=== PATIENT | female | born 1990 | race Caucasian/White ===

== ENCOUNTER 2018-04-30 11:28 | Emergency (ER) | payer MEDICAID ==
[~2018-04-30] VITALS: Ht 170.2 cm; Wt 53.6 kg
[2018-04-30 11:35] VITALS: BP 118/71; PULSE 98; TEMP 98.7
[2018-04-30] MEDS ORDERED: XANAX .25M0.25 MG/TA (11:49)
== END 2018-04-30 12:10 | disposition home or self-care (01) ==
LOC: COL.ER 11:28
DX: S61.214A Laceration without foreign body of right ring finger without damage to nail, initial encounter (principal); F41.9 Anxiety disorder, unspecified; W25.XXXA Contact with sharp glass, initial encounter

== ENCOUNTER 2018-05-20 06:17 | Emergency (ER) | payer MEDICAID ==
[~2018-05-20] VITALS: Ht 170.2 cm; Wt 51.4 kg
[~2018-05-20 06:17] MED LIST: XANAX .25M0.25 MG/TA
[2018-05-20 06:22] VITALS: TEMP 99.1
[2018-05-20 07:40] LABS: COLLECTION METHOD CLEAN CATCH
[2018-05-20 07:50] LABS: MUCOUS Present /lpf; PH 7 (5-8); URINE APPEARANCE Hazy; URINE BACTERIA Rare /hpf; URINE BILIRUBIN Negative (NEGATIVE); URINE BLOOD Negative (NEGATIVE); URINE COLOR Yellow; URINE GLUCOSE Negative (NEGATIVE); URINE KETONE 2+ (NEGATIVE); URINE LEUKOCYTE ESTERASE Trace (NEGATIVE); URINE NITRATE Negative (NEGATIVE); URINE PROTEIN(semi-quant) Negative (NEGATIVE); URINE RBC 0-2 /hpf; URINE UROBILINOGEN Negative (NEGATIVE)
[2018-05-20 08:07] LABS: BASO % 0.4 % (0.0-2.0); EOS % 0.1 % (0-4.0); GRAN # 5.6 (1.4-6.5); GRAN % 80.1 % (42.2-75.2); HEMATOCRIT 38.9 % (37.0-47.0); HEMOGLOBIN 14.2 g/dl (12.5-16.0); LYMPH # 0.9 (1.2-3.4); LYMPH % 12.7 % (20.0-51.0); MEAN CELL VOLUME 89 fl (80.0-100.0); MEAN CORPUSCULAR HEMOGLOBIN 33 pg (27.0-31.0); MEAN CORPUSCULAR HGB CONC 37 g/dl (33.0-37.0); MEAN PLATELET VOLUME 9.6 fl (7.4-10.4); MONO # 0.4 (0.1-0.6); MONO % 6.3 % (1.7-9.3); PLATELET COUNT 147 K/mm3 (130-400); RED BLOOD COUNT 4.37 M/mm3 (4.10-5.30); REDCELL DISTRIBUTION WIDTH-CV 12.1 % (11.5-14.5)
[2018-05-20] MEDS ORDERED: FEMYNOR 28 TAB1 EACH PO (08:13)
[2018-05-20] MEDS ORDERED: ZOFRAN ODT4 MG PO (08:14)
[2018-05-20 08:22] LABS: ALANINE AMINOTRANSFERASE 15 U/L (9-52); ALBUMIN 4.7 gm/dL (3.5-5.0); ALKALINE PHOSPHATASE 43 U/L (50-136); ANION GAP 13 mmol/L (7-16); AST,SGOT 15 U/L (15-37); BLOOD UREA NITROGEN 5 mg/dL (7-17); CARBON DIOXIDE 23 mmol/L (22-30); CHLORIDE 100 mmol/L (98-107); GLUCOSE 102 mg/dL (74-106); LIPASE 119 U/L (23-300); POTASSIUM 3.4 mmol/L (3.4-5.0); SODIUM 136 mmol/L (137-145); TOTAL PROTEIN 7.4 gm/dL (6.4-8.2)
[2018-05-20] MEDS ORDERED: PHENERGAN 25 TA25 MG PO (08:26)
[2018-05-20 08:28] LABS: C-REACTIVE PROTEIN < 0.5 mg/dL (0.0-0.9)
[2018-05-20 09:44] VITALS: BP 122/80; PULSE 88
== END 2018-05-20 09:43 | disposition home or self-care (01) ==
LOC: COL.ER 06:17
PROVIDERS: Family Medicine
DX: O21.9 Vomiting of pregnancy, unspecified (principal); O99.340 Other mental disorders complicating pregnancy, unspecified trimester; F41.9 Anxiety disorder, unspecified; Z87.891 Personal history of nicotine dependence; Z3A.00 Weeks of gestation of pregnancy not specified
CPT/HCPCS: J2550; J7030

== ENCOUNTER 2019-01-21 21:49 | Emergency (ER) | payer MEDICAID ==
[~2019-01-21] VITALS: Ht 170.2 cm; Wt 54.1 kg
[~2019-01-21 21:49] MED LIST changes: +FEMYNOR 28 TAB1 EACH PO; +PHENERGAN 25 TA25 MG PO; +ZOFRAN ODT4 MG PO
[2019-01-21 21:52] VITALS: BP 105/67; TEMP 98.3
[2019-01-21 22:47] VITALS: PULSE 66
== END 2019-01-21 22:46 | disposition home or self-care (01) ==
LOC: COL.ER 21:49
DX: S05.01XA Injury of conjunctiva and corneal abrasion without foreign body, right eye, initial encounter (principal); F41.9 Anxiety disorder, unspecified; Z88.5 Allergy status to narcotic agent; Z87.891 Personal history of nicotine dependence; W22.8XXA Striking against or struck by other objects, initial encounter

== ENCOUNTER → 2019-09-23 | Outpatient (CLI) | payer MEDICAID | LOC: MC.RAD 14:00 | DX: N60.02 Solitary cyst of left breast (principal) ==

== ENCOUNTER 2020-07-22 05:12 | Emergency (ER) | payer MEDICAID ==
[~2020-07-22] VITALS: Ht 170.2 cm; Wt 63.6 kg
[2020-07-22 05:17] VITALS: TEMP 97.7
[2020-07-22] MEDS ORDERED: REMERON 15M15 MG/TA1 PO (05:24)
[2020-07-22 05:55] LABS: BASO % 0.4 % (0.0-2.0); EOS # 0.1 (0.0-0.7); EOS % 1.3 % (0-4.0); GRAN # 4.2 (1.4-6.5); GRAN % 76.8 % (42.2-75.2); HEMATOCRIT 45.5 % (37.0-47.0); HEMOGLOBIN 16.2 g/dl (12.5-16.0); LYMPH # 0.7 (1.2-3.4); LYMPH % 12.8 % (20.0-51.0); MEAN CELL VOLUME 89 fl (80.0-100.0); MEAN CORPUSCULAR HEMOGLOBIN 32 pg (27.0-31.0); MEAN CORPUSCULAR HGB CONC 36 g/dl (33.0-37.0); MEAN PLATELET VOLUME 9.9 fl (7.4-10.4); MONO # 0.5 (0.1-0.6); MONO % 8.5 % (1.7-9.3); PLATELET COUNT 185 K/mm3 (130-400); RED BLOOD COUNT 5.11 M/mm3 (4.10-5.30); REDCELL DISTRIBUTION WIDTH-CV 12.2 % (11.5-14.5)
[2020-07-22 06:05] LABS: ALANINE AMINOTRANSFERASE 15 U/L (4-34); ALBUMIN 4.7 gm/dL (3.5-5.0); ALKALINE PHOSPHATASE 59 U/L (50-136); ANION GAP 10 mmol/L (7-16); AST,SGOT 24 U/L (15-37); BILIRUBIN,TOTAL 1.9 mg/dL (0.0-1.0); BLOOD UREA NITROGEN 12 mg/dL (7-17); CALCIUM 9.5 mg/dL (8.4-10.2); CARBON DIOXIDE 24 mmol/L (22-30); CHLORIDE 101 mmol/L (98-107); CREATINE KINASE 81 U/L (30-135); CREATININE, serum 0.58 (0.52-1.25); GLUCOSE 107 mg/dL (74-106); LIPASE 111 U/L (23-300); POTASSIUM 3.8 mmol/L (3.4-5.0); SODIUM 135 mmol/L (137-145); TOTAL PROTEIN 7.9 gm/dL (6.4-8.2)
[2020-07-22 06:18] LABS: TROPONIN-I < 0.012 ng/mL (0.000-0.035)
[2020-07-22] MEDS ORDERED: PEPCID 20MG TAB20 MG PO (06:46)
[2020-07-22] MEDS ORDERED: ZOFRAN ODT4 MG PO (06:46)
[2020-07-22] MEDS ORDERED: ZITHROMAX Z PA250 MG PO (06:46)
[2020-07-22 06:57] LABS: COLLECTION METHOD CLEAN CATCH
[2020-07-22 07:08] LABS: MUCOUS Present /lpf; PH 7 (5-8); URINE APPEARANCE Hazy; URINE BACTERIA None Seen /hpf; URINE BILIRUBIN Negative (NEGATIVE); URINE BLOOD Negative (NEGATIVE); URINE COLOR Yellow; URINE GLUCOSE Negative (NEGATIVE); URINE KETONE 1+ (NEGATIVE); URINE LEUKOCYTE ESTERASE Trace (NEGATIVE); URINE NITRATE Negative (NEGATIVE); URINE PROTEIN(semi-quant) 1+ (NEGATIVE); URINE UROBILINOGEN >=4.0 mg/dL (NEGATIVE)
[2020-07-22 08:08] VITALS: BP 101/71; PULSE 82
[2020-07-22] MEDS ORDERED: DIFLUCAN150 MG PO (08:12)
== END 2020-07-22 08:09 | disposition home or self-care (01) ==
LOC: COL.ER 05:12
PROVIDERS: Emergency Medicine
DX: J18.9 Pneumonia, unspecified organism (principal); Z20.822 Contact with and (suspected) exposure to COVID-19; Z87.891 Personal history of nicotine dependence; Z32.02 Encounter for pregnancy test, result negative
CPT/HCPCS: J2060; J2405; J2765; J7030

== ENCOUNTER 2020-08-11 14:27 | Emergency (ER) | payer MEDICAID ==
[~2020-08-11] VITALS: Ht 170.2 cm; Wt 63.6 kg
[~2020-08-11 14:27] MED LIST changes: +DIFLUCAN150 MG PO; +PEPCID 20MG TAB20 MG PO; +REMERON 15M15 MG/TA1 PO; +ZITHROMAX Z PA250 MG PO
[2020-08-11 14:40] VITALS: BP 123/82; TEMP 98.1
[2020-08-11] MEDS ORDERED: APRESOLINE 25MG25 MG PO (14:46)
[2020-08-11] MEDS ORDERED: PRILOSEC 20MG20 MG PO (15:03)
[2020-08-11] MEDS ORDERED: ATIVAN 0.50.5 MG/TAB PO (15:45)
[2020-08-11 15:53] VITALS: PULSE 81
== END 2020-08-11 15:58 | disposition home or self-care (01) ==
LOC: COL.ER 14:27
DX: F41.0 Panic disorder [episodic paroxysmal anxiety] (principal); F17.210 Nicotine dependence, cigarettes, uncomplicated

== ENCOUNTER 2020-08-17 08:34 | Emergency (ER) | payer MEDICAID ==
[~2020-08-17] VITALS: Ht 165.1 cm; Wt 56.8 kg
[~2020-08-17 08:34] MED LIST changes: +APRESOLINE 25MG25 MG PO; +ATIVAN 0.50.5 MG/TAB PO; +PRILOSEC 20MG20 MG PO
[2020-08-17 08:46] VITALS: TEMP 98.1
[2020-08-17 09:07] LABS: COLLECTION METHOD CLEAN CATCH
[2020-08-17 09:11] LABS: BASO % 0.6 % (0.0-2.0); EOS # 0.1 (0.0-0.7); EOS % 1.8 % (0-4.0); GRAN # 3.2 (1.4-6.5); GRAN % 63.2 % (42.2-75.2); HEMATOCRIT 43.6 % (37.0-47.0); HEMOGLOBIN 15.3 g/dl (12.5-16.0); LYMPH # 1.3 (1.2-3.4); MEAN CELL VOLUME 91 fl (80.0-100.0); MEAN CORPUSCULAR HEMOGLOBIN 32 pg (27.0-31.0); MEAN CORPUSCULAR HGB CONC 35 g/dl (33.0-37.0); MONO # 0.4 (0.1-0.6); MONO % 8.2 % (1.7-9.3); PLATELET COUNT 192 K/mm3 (130-400); REDCELL DISTRIBUTION WIDTH-CV 12.4 % (11.5-14.5)
[2020-08-17 09:18] LABS: PH 8 (5-8); SQUAMOUS EPITHELIAL 0-2 /hpf; URINE APPEARANCE Hazy; URINE BACTERIA Rare /hpf; URINE BILIRUBIN Negative (NEGATIVE); URINE BLOOD 2+ (NEGATIVE); URINE COLOR Yellow; URINE GLUCOSE Negative (NEGATIVE); URINE KETONE Negative (NEGATIVE); URINE LEUKOCYTE ESTERASE Negative (NEGATIVE); URINE NITRATE Negative (NEGATIVE); URINE PROTEIN(semi-quant) Negative (NEGATIVE); URINE RBC 0-2 /hpf; URINE UROBILINOGEN Negative (NEGATIVE)
[2020-08-17 09:20] LABS: ALBUMIN 4.7 gm/dL (3.5-5.0); BILIRUBIN,TOTAL 1.1 mg/dL (0.0-1.0); CALCIUM 9.5 mg/dL (8.4-10.2); CREATININE, serum 0.66 (0.52-1.25); POTASSIUM 3.4 mmol/L (3.4-5.0); TOTAL PROTEIN 7.7 gm/dL (6.4-8.2)
[2020-08-17] MEDS ORDERED: ZOFRAN ODT4 MG PO (10:40)
[2020-08-17 10:57] VITALS: BP 116/81; PULSE 71
== END 2020-08-17 11:08 | disposition home or self-care (01) ==
LOC: COL.ER 08:34
PROVIDERS: Emergency Medicine
DX: R11.2 Nausea with vomiting, unspecified (principal); R10.13 Epigastric pain; F41.9 Anxiety disorder, unspecified; Z79.899 Other long term (current) drug therapy
CPT/HCPCS: J2405; J7120

== ENCOUNTER 2020-09-28 06:40 | Emergency (ER) | payer MEDICAID ==
[~2020-09-28] VITALS: Ht 170.2 cm; Wt 61.4 kg
[2020-09-28 06:44] VITALS: TEMP 97.8
[2020-09-28 07:10] LABS: COLLECTION METHOD CLEAN CATCH
[2020-09-28 07:18] LABS: BASO % 0.4 % (0.0-2.0); EOS % 0.2 % (0-4.0); GRAN # 6.5 (1.4-6.5); GRAN % 80.7 % (42.2-75.2); HEMATOCRIT 43.4 % (37.0-47.0); HEMOGLOBIN 15.4 g/dl (12.5-16.0); LYMPH # 1.1 (1.2-3.4); LYMPH % 13.2 % (20.0-51.0); MEAN CELL VOLUME 90 fl (80.0-100.0); MEAN CORPUSCULAR HEMOGLOBIN 32 pg (27.0-31.0); MEAN CORPUSCULAR HGB CONC 36 g/dl (33.0-37.0); MEAN PLATELET VOLUME 9.9 fl (7.4-10.4); MONO # 0.4 (0.1-0.6); MONO % 5.1 % (1.7-9.3); PLATELET COUNT 179 K/mm3 (130-400); RED BLOOD COUNT 4.85 M/mm3 (4.10-5.30); REDCELL DISTRIBUTION WIDTH-CV 12.2 % (11.5-14.5)
[2020-09-28 07:23] LABS: MUCOUS Present /lpf; PH 6 (5-8); SQUAMOUS EPITHELIAL 20-50 /hpf; URINE APPEARANCE Cloudy; URINE BACTERIA Rare /hpf; URINE BILIRUBIN Negative (NEGATIVE); URINE BLOOD 1+ (NEGATIVE); URINE COLOR Amber; URINE GLUCOSE Negative (NEGATIVE); URINE KETONE 2+ (NEGATIVE); URINE LEUKOCYTE ESTERASE Trace (NEGATIVE); URINE NITRATE Negative (NEGATIVE); URINE PROTEIN(semi-quant) 1+ (NEGATIVE)
[2020-09-28 07:23] LABS: ALBUMIN 4.6 gm/dL (3.5-5.0); BILIRUBIN,TOTAL 2.4 mg/dL (0.0-1.0); CALCIUM 10.4 mg/dL (8.4-10.2); CREATININE, serum 0.5 (0.52-1.25); POTASSIUM 3.5 mmol/L (3.4-5.0); TOTAL PROTEIN 7.6 gm/dL (6.4-8.2)
[2020-09-28] MEDS ORDERED: PHENERGAN 25 TA25 MG PO (09:28)
[2020-09-28 09:31] VITALS: BP 109/69; PULSE 95
== END 2020-09-28 09:35 | disposition home or self-care (01) ==
LOC: COL.ER 06:40
PROVIDERS: Emergency Medicine
DX: O21.9 Vomiting of pregnancy, unspecified (principal); O99.341 Other mental disorders complicating pregnancy, first trimester; F41.9 Anxiety disorder, unspecified; O99.331 Smoking (tobacco) complicating pregnancy, first trimester; F17.210 Nicotine dependence, cigarettes, uncomplicated; Z3A.00 Weeks of gestation of pregnancy not specified
CPT/HCPCS: J2765; J7030